=== PATIENT | female | born 2000 | race Caucasian/White ===

== ENCOUNTER 2022-05-13 20:25 | Emergency (ER) | payer BC, MEDICAID, SELFPAY ==
[2022-05-13 20:32] VITALS: BP 151/80; PULSE 80; O2SAT 99
[2022-05-13 20:34] VITALS: BP 112/72; PULSE 115; RESP 18; TEMP 36.7; O2SAT 100; BMI 25.2
--- NOTE | 2022-05-13 21:05 | ED_ITS ---
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 on multiple medication including Keppra and Trileptal and Lamictal typically patient patient did not have any seizure since 08/25 today she got 4 seizure back to back since 19:00 lasting less than a minute no incontinence or postictal confusion were generalized tonic-clonic seizure no head injury no fever no c hills no vomiting no tongue bite patient is back to normal at this time patient has a neuro sense for the seizures which she recorded will be sending to her neurologist takes Keppra 500 mg daily Trileptal 600 mg twice daily and Lamictal 300 mg twice daily no fever no chills no neck pain or urinary symptoms Related Data Home Medications Medication Instructions Recorded Confirmed EPA-DHA 1 cap PO QAM 05/13/22 05/13/22 acetylcysteine (bulk) 900 ea miscellaneous QAM 05/13/22 05/13/22 butterbur root extract 75 mg 75 mg PO QAM 05/13/22 05/13/22 capsule (Petadolex) clonazepam 2 mg disintegrating 2 mg PO PRN Seizures 05/13/22 tablet cyproheptadine 4 mg tablet 4 mg PO QPM 05/13/22 05/13/22 lamotrigine 300 mg tablet,extended 300 mg PO BID 05/13/22 05/13/22 release 24 hr (Lamictal XR) levetiracetam 500 mg 1 mg PO QPM 05/13/22 05/13/22 tablet,extended release 24 hr (Keppra XR) oxcarbazepine 600 mg tablet 600 mg PO BID 05/13/22 05/13/22 (Trileptal) riboflavin 200 mg-magnesium 1 tab PO QAM 05/13/22 05/13/22 citrate,oxide 180 mg-feverfew 50 mg tablet (MigreLief) verapamil 120 mg 24 hr 120 mg PO QPM 05/13/22 05/13/22 capsule,extended release Allergies Allergy/AdvReac Type Severity Reaction Status Date / Time No Known Allergies Allergy Verified 05/13/22 20:32 Review of Systems Review of Systems: Yes all other systems are reviewed and are negative PMFSH Past Medical History Medical History Atypical migraine Complex partial seizure disorder Intellectual disability Social History Social History Alcohol intake: never Smoked in Last 30 Days: No Use of substances other than those prescribed or required for medical reasons: No Advance Directives: No Advance Directives Information Provided: No Patient : No Physical Exam Vital Signs: Vital Signs: Last Vital Signs Temp 98.1 F 05/13/22 20:34 Pulse 115 H 05/13/22 20:34 Resp 18 05/13/22 20:34 BP 112/72 05/13/22 20:34 Pulse Ox 100 05/13/22 20:34 O2 Del Method 05/13/22 20:34 BMI result Body Mass Index 25.2 Appearance: Alert. Oriented X3. No acute distress. Mentally challenged Eyes: PERRLA, No Nystagmus ENT: Pharynx normal. Oral Mucosa moist no tongue bite Neck: Normal inspection. Neck supple. CVS: Normal heart rate and rhythm. Pulses normal. Respiratory: No respiratory distress. Equal air entry bilateral, no wheezing/rales/rhonchi Abdomen: Soft and nontender. Bowel sounds are present Skin: Skin warm and dry. Normal skin color. Normal skin turgor. Extremities: No lower extremity edema. Neuro: Oriented X 3. No motor deficit. No sensory deficit.No cerebellar signs , cranial nerves II-XII intact Medications Administered Discontinued Medications Generic Name Dose Route Start Last Admin Trade Name Tristanq PRN Reason Stop Dose Admin Levetiracetam 500 mg 05/13/22 21:19 05/13/22 21:33 Levetiracetam 500 Mg/5 Ml Vial IV 05/13/22 21:20 500 mg NOW STA Administration Medical Decision Making Medical Decision Making [facility] Narrative: Patient with chronic complex partial seizures came with multiple episodes of sei zures on heavy doses of antiepileptic medication Keppra, Lamictal, Trileptal. Patient takes Keppra 500 mg will give extra dose of Keppra advised to take 500mg Keppra in the morning 250 mg in the evening and follow up with neurologist Lab Data [facility] Lab Attestation statement: I reviewed the patient's lab results. 05/13/22 21:32 05/13/22 21:32 Labs: Lab Results 05/13/22 05/13/22 05/13/22 Range/Units 20:53 21:32 21:32 WBC 12.5 H (4.8-10.8) X10*3/uL RBC 4.64 (4.20-5.50) X10*6/uL Hgb 14.9 (12.0-16.0) g/dl Hct 43.3 (37.0-47.0) % MCV 93.3 (80.0-98.0) fL MCH 32.1 (27.0-33.0) pg MCHC 34.4 (31.0-35.0) g/dl RDW 11.9 (11.0-16.0) % Plt Count 460 H (160-400) X10*3/uL MPV 9.1 L (9.4-12.3) fL Immature Gran % (Auto) 0.3 (0.0-0.4) % Neut % (Auto) 72.5 (45-73) % Lymph % (Auto) 18.7 L (20-40) % [place] % (Auto) 7.0 (2-11) % Eos % (Auto) 1.0 (0-4) % Baso % (Auto) 0.5 (0-2) % Lymph # (Auto) 2.3 (1.2-4.9) X10*3/uL [place] # (Auto) 0.9 (0.1-1.2) X10*3/uL Eos # (Auto) 0.1 (0.0-0.4) X10*3/uL Baso # (Auto) 0.1 (0.0-0.2) X10*3/uL Abs Immat Gran (auto) 0.04 H (0.00-0.03) X10*3/uL Absolute Neuts (auto) 9.0 H (2.0-8.3) x10*3/uL Absolute Nucleated RBC 0.000 (0.0-0.012) X10*3/uL Nucleated RBC % (auto) 0.0 (0.0-0.2) /100WBC Sodium 139 (135-145) mmol/L Potassium 5.0 (3.3-5.1) mmol/L Chloride 101 (96-108) mmol/L Carbon Dioxide 24 (22-29) mmol/L Anion Gap 19 (12-20) BUN 11 (9-16) mg/dL Creatinine 0.88 (0.5-1.4) mg/dL Estim Creat Clear Calc 89.3 Estimated GFR > 60 Random Glucose 108 (60-115) mg/dL Calcium 10.1 (8.4-10.2) mg/dL Total Bilirubin 0.2 (0.0-1.0) mg/dL AST 44 H (5-31) U/L ALT 30 (0-31) U/L Alkaline Phosphatase 166 H (39-117) U/L Total Protein 7.9 (6.5-8.0) g/dL Albumin 4.8 (3.5-5.0) g/dL Urine Color Dark Yellow Urine Appearance Cloudy Urine pH 7.5 (5.0-9.0) Ur Specific [place] 1.025 (1.005-1.025) Urine Protein 30 (1+) H (Neg-Trace) mg/dL Urine Glucose (UA) Negative (Negative) mg/dL Urine Ketones Negative (Negative) mg/dL Urine Blood Negative (Negative) Urine Nitrite Negative (Negative) Ur Leukocyte Esterase Negative (Negative) Urine RBC 3-5 H (0-2) /HPF Urine WBC 0-5 (0-5) /HPF Ur Squamous Epith Cells 0-2 (0-2) /HPF Urine Bacteria 1+ (None Seen) Hyaline Casts 0-2 (0-2) /LPF Discharge Plan Discharge Clinical Impression: Epileptic seizure Patient Disposition: Home, Self-Care Instructions: Epilepsy (ED) Additional Instructions: Continue medications as prescribed by neurologist Advised to take extra 250 mg of Keppra in the evening or change in medication per neurologist Prescriptions: No Action cyproheptadine [Periactin] 4 mg Tablet 4 mg PO QPM oxcarbazepine [Trileptal] 600 mg Tablet 600 mg PO BID acetylcysteine (bulk) [[id number]-[id number]-Cysteine] Powder 900 ea MISCELLANEOUS QAM Rx Instructions: 900mg verapamil [Verelan] 120 mg Capsule,Ext Rel. Pellets 24 Hr 120 mg PO QPM clonazepam 2 mg Tablet,Disintegrating 2 mg PO PRN (Reason: Seizures) levetiracetam [Keppra XR] 500 mg Tablet Extended Release 24 Hr 1 mg PO QPM lamotrigine [Lamictal XR] 300 mg Tablet Extended Release 24hr 300 mg PO BID MigreLief 200-180-50 mg Tablet 1 tab PO QAM Petadolex 75 75 mg Capsule 75 mg PO QAM EPA-DHA 1 cap PO QAM
--- NOTE | 2022-05-13 21:08 | PC.NURSE ---
pt a&ox3, vss, resting comfortably, long term staff at bedside, seizure precautions in place. no new orders at this time.
[2022-05-13 21:13] LABS: Appearance Urine Cloudy; Color Urine Dark Yellow; Glucose Urine UA Negative (Negative); Leukocyte Esterase Urine Negative (Negative); Nitrite Urine Negative (Negative); PH 7.5 (5.0-9.0); Specific Gravity - Urine 1.025 (1.005-1.025); UMIC TRIGGER UACC YES; Urine Blood Negative (Negative); Urine Ketones Negative (Negative); Urine Protein 30 (1+) mg/dL (Neg-Trace)
[2022-05-13 21:15] LABS: Bacteria Urine 1+ (None Seen); Hyaline Casts Urine 0-2 /LPF (0-2); Squamous Epithelial Cell Urine 0-2 /HPF (0-2); WBC Urine 0-5 /HPF (0-5)
[2022-05-13] MEDS: levETIRAcetam 500 MG/5 ML VIAL IV (21:33)
[2022-05-13 21:38] LABS: Basophils Absolute Auto 0.1 X10*3/uL (0.0-0.2); Basophils Percent Auto 0.5 % (0-2); Eosinophils Absolute Auto 0.1 X10*3/uL (0.0-0.4); Hematocrit 43.3 % (37.0-47.0); Hemoglobin 14.9 g/dl (12.0-16.0); Imm Gran Abs Auto 0.04 X10*3/uL (0.00-0.03); Imm Gran Pct Auto 0.3 % (0.0-0.4); Lymphocytes Absolute Auto 2.3 X10*3/uL (1.2-4.9); Lymphocytes Percent Auto 18.7 % (20-40); MANUAL DIFF FLAG NO; Mean Corpuscular HGB Conc 34.4 g/dl (31.0-35.0); Mean Corpuscular Hemoglobin 32.1 pg (27.0-33.0); Mean Corpuscular Volume 93.3 fL (80.0-98.0); Mean Platelet Volume 9.1 fL (9.4-12.3); Monocytes Absolute Auto 0.9 X10*3/uL (0.1-1.2); Neutrophils Percent Auto 72.5 % (45-73); Platelet Count 460 X10*3/uL (160-400); Red Blood Count 4.64 X10*6/uL (4.20-5.50); Red Cell Distribution Width 11.9 % (11.0-16.0); White Blood Count 12.5 X10*3/uL (4.8-10.8)
[2022-05-13 21:59] LABS: Alanine Aminotransferase 30 U/L (0-31); Albumin Level 4.8 g/dL (3.5-5.0); Alkaline Phosphatase 166 U/L (39-117); Anion Gap 19 (12-20); Aspartate Amino Transferase 44 U/L (5-31); Bilirubin Total 0.2 mg/dL (0.0-1.0); Blood Urea Nitrogen 11 mg/dL (9-16); Calcium 10.1 mg/dL (8.4-10.2); Carbon Dioxide 24 mmol/L (22-29); Chloride 101 mmol/L (96-108); Creatinine Clr Calc Pharmacy 89.3; Estimated Glomerular Filt Rate > 60; Glucose Random 108 mg/dL (60-115); Sodium 139 mmol/L (135-145); Total Protein 7.9 g/dL (6.5-8.0)
== END 2022-05-13 22:42 | disposition home or self-care (01) ==
PROVIDERS: Emergency Medicine Emergency Medical Services; Emergency Provider Internal Medicine
DX: R56.9 Unspecified convulsions (principal); Z79.899 Other long term (current) drug therapy
CPT/HCPCS: 36415; 80053; 81001; 85025; 96374; 99284; J1953